=== PATIENT | male | born 1940 | race Two or more races ===

== ENCOUNTER 2019-03-18 09:17 | Inpatient (IN) | payer MEDICAID, OTHER, SELFPAY ==
[~2019-03-18] VITALS: Ht 165.1 cm; Wt 44.8 kg
[2019-03-18 10:32] LABS: BASOPHILS # (AUTO) 0.05 x10^3/uL (0-0.1); BASOPHILS % (AUTO) 0 % (0-1); EOSINOPHILS % (AUTO) 1 % (1-7); LYMPHOCYTES % (AUTO) 6 % (22-44); MD NO; MEAN CORPUSCULAR HEMOGLOBIN 28.1 pg (27.5-34.5); MEAN CORPUSCULAR HGB CONC 33.3 g/dL (33.2-36.2); MEAN CORPUSCULAR VOLUME 84.4 fL (81-97); MONOCYTES # (AUTO) 0.64 x10^3/uL (0.2-0.8); MONOCYTES % (AUTO) 5 % (2-9); NEUTROPHILS # (AUTO) 12.63 x10^3/uL (1.8-6.8); NEUTROPHILS % (AUTO) 88 % (42-75); PLATELET COUNT 338 x10^3/uL (130-400); RED BLOOD COUNT 5.74 x10^6/uL (4.38-5.82); RED CELL DISTRIBUTION WIDTH 16.7 % (9.4-14.8)
[2019-03-18 10:43] LABS: MICROSCOPIC NOT IND
[2019-03-18 10:45] LABS: ALBUMIN 3.1 g/dL (3.4-5.0); ANION GAP 5 mmol/L (5-15); CALCIUM 12.4 mg/dL (8.5-10.1); CHLORIDE 105 mmol/L (98-107)
[2019-03-18 10:52] LABS: ALANINE AMINOTRANSFERASE 33 U/L (12-78); ALKALINE PHOSPHATASE 100 U/L (45-117); BILIRUBIN,TOTAL 2.1 mg/dL (0.2-1.0); CREATININE 1.01 mg/dL (0.7-1.3); TOTAL PROTEIN 7.5 g/dL (6.4-8.2); TROPONIN I < 0.015 ng/mL (0.000-0.045)
[2019-03-18 10:54] LABS: CULTURE INDICATED? NO
[2019-03-18] MEDS ORDERED: POTASSIUM CHLORIDE 10% 40 MEQ/30 ML UDC PO ONE (11:00)
[2019-03-18] MEDS ORDERED: SODIUM CHLORIDE FLUSH 10ML SYR IVF ONE (11:00)
[2019-03-18] MEDS ORDERED: MAGNESIUM SULFATE 1 GM in SODIUM CHLORIDE 0.9% 50 ML IV ONE (11:00)
[2019-03-18] MEDS ORDERED: POTASSIUM CHLORIDE 10% 40 MEQ/30 ML UDC ONE (11:03)
--- NOTE | 2019-03-18 11:12 | NUR ---
Yellow lab slip sent to pharmacy to request medication per EMAR.
--- NOTE | 2019-03-18 11:42 | NUR ---
Provided pt medicaiton per EMAR. Pt had pulled off all of his monitors and PIV that was placed earlier. radiological technologist, NIBP, and cotninous pulse ox monitors reapplied. PIV being re-established. Provided pt with new elizabeth and linens as pt was incontinent of urine. Provided pt warm blankets and blanket warmer for comfort measures. Both bed rails up for safety measures, call light within reach. BRYON.
--- NOTE | 2019-03-18 11:59 | NUR ---
New PIV established by Staff ED RN. PIV medicaitons infusing per EMAR. NADN. No needs expressed. Call light within reach. Both bedrails up for safety measures.
--- NOTE | 2019-03-18 13:39 | NUR ---
REPORT FROM VASQUEZ RIGGS.
--- NOTE | 2019-03-18 14:04 | NUR ---
PT UP TO EDGE OF [place]. PT ASSISTED TO FEET. PT PLACED BACK INTO [facility] IMMEDIATELY DUE TO BE UNSTEADY. ERMD AWARE.
--- NOTE | 2019-03-18 15:11 | NUR ---
PT TO CT VIA [facility].
--- NOTE | 2019-03-18 15:50 | NUR ---
PT SLEEPING IN [facility]. NAD NOTED AT THIS TIME. BREATHING REGULAR AND UNLABORED.
[2019-03-18] MEDS ORDERED: POTASSIUM CHLORIDE 40 MEQ in SODIUM CHLORIDE 0.9% 1,000 ML IV ONE (16:18)
[2019-03-18] MEDS ORDERED: SODIUM CHLORIDE FLUSH 10ML SYR IVF PRN (16:30)
[2019-03-18] MEDS ORDERED: hydrALAzine 20 MG/ML, 1ML IVPush PRN (17:30)
[2019-03-18] MEDS ORDERED: ONDANSETRON ODT 4 MG PO PRN (17:30)
[2019-03-18] MEDS ORDERED: DOCUSATE 100 MG CAPSULE PO PRN (17:30)
[2019-03-18] MEDS ORDERED: LIDODERM 5% PATCH TD PRN (17:30)
--- NOTE | 2019-03-18 17:37 | NUR ---
REPORT TO VASQUEZ BLUM. AWAITING TRANSPORT.
--- NOTE | 2019-03-18 17:55 | NUR ---
IV INFUSION STARTED PER JAN. RIGHTS VERIFIED PRIOR. 3 P'S ADDRESSED. PT TO FLOOR.
[2019-03-18 18:10] VITALS: BP 111/74
[2019-03-18] MEDS ORDERED: CEFTRIAXONE PMX 1GM/50ML 50 ML IV SCH (18:30)
[2019-03-18 18:41] LABS: TROPONIN I 0.022 ng/mL (0.000-0.045)
[2019-03-18 18:52] LABS: FREE T4 (FREE THYROXINE) 1.31 ng/dL (0.76-1.46); THYROID STIMULATING HORMONE 1.02 mIU/L (0.358-3.740)
[2019-03-18] MEDS: HEPARIN 5,000 UNITS/ML, 1ML SQ SCH (21:18)
[2019-03-18] MEDS ORDERED: FUROSEMIDE 20 MG/2 ML IV STA (21:24)
[2019-03-18] MEDS ORDERED: OMNIPAQUE 350 MG/ML, 100ML BOTTLE ONE (21:46)
[2019-03-18 21:54] LABS: AMPHETAMINE SCREEN, URINE Negative (Negative); BARBITURATE SCREEN, URINE Negative (Negative); BENZODIAZEPINE SCREEN, URINE Negative (Negative); CANNABINOID SCREEN, URINE Negative (Negative); COCAINE SCREEN, URINE Negative (Negative); METHADONE SCREEN, URINE Negative (Negative); OPIATE SCREEN, URINE Negative (Negative)
[2019-03-18 23:17] LABS: CALCIUM 12.3 mg/dL (8.5-10.1)
[2019-03-18] MEDS: DOXYCYCLINE 100 MG in DEXTROSE 5% 250 ML IV SCH (23:27)
[2019-03-18] MEDS: SODIUM CHLORIDE 0.9% 1,000 ML IV SCH (23:30)
[2019-03-19] MEDS ORDERED: ALBUTEROL/IPRATROPIUM 2.5MG/0.5MG, 3 ML NPPB PRN
[2019-03-19 00:53] LABS: TROPONIN I < 0.015 ng/mL (0.000-0.045)
[2019-03-19 02:07] VITALS: BP 109/71
[2019-03-19 04:50] VITALS: BP 112/68
[2019-03-19] MEDS: HEPARIN 5,000 UNITS/ML, 1ML SQ SCH ×2 (05:34→17:00)
[2019-03-19 05:49] LABS: BASOPHILS # (AUTO) 0.04 x10^3/uL (0-0.1); BASOPHILS % (AUTO) 0 % (0-1); EOSINOPHILS # (AUTO) 0.08 x10^3/uL (0-0.4); EOSINOPHILS % (AUTO) 1 % (1-7); LYMPHOCYTES % (AUTO) 10 % (22-44); MD NO; MEAN CORPUSCULAR HEMOGLOBIN 27.9 pg (27.5-34.5); MEAN CORPUSCULAR HGB CONC 32.9 g/dL (33.2-36.2); MEAN CORPUSCULAR VOLUME 84.7 fL (81-97); MEAN PLATELET VOLUME 7.4 fL (7.4-10.4); MONOCYTES # (AUTO) 0.69 x10^3/uL (0.2-0.8); MONOCYTES % (AUTO) 5 % (2-9); NEUTROPHILS # (AUTO) 12.05 x10^3/uL (1.8-6.8); NEUTROPHILS % (AUTO) 84 % (42-75); PLATELET COUNT 310 x10^3/uL (130-400); RED CELL DISTRIBUTION WIDTH 16.9 % (9.4-14.8)
[2019-03-19 05:52] LABS: CALCIUM 12.3 mg/dL (8.5-10.1); CHLORIDE 110 mmol/L (98-107)
[2019-03-19 05:58] LABS: ALANINE AMINOTRANSFERASE 29 U/L (12-78); ALBUMIN 2.8 g/dL (3.4-5.0); ALKALINE PHOSPHATASE 95 U/L (45-117); ANION GAP 7 mmol/L (5-15); BILIRUBIN,TOTAL 1.6 mg/dL (0.2-1.0); CREATININE 1.06 mg/dL (0.7-1.3)
[2019-03-19 08:18] VITALS: BP 97/67
[2019-03-19] MEDS: SODIUM CHLORIDE 0.9% 1,000 ML IV SCH (09:18)
[2019-03-19] MEDS: DOXYCYCLINE 100 MG in DEXTROSE 5% 250 ML IV SCH (09:18)
[2019-03-19] MEDS ORDERED: POTASSIUM CHLORIDE 20 MEQ TAB.ER.PRT PO ONE (10:00)
[2019-03-19 12:45] VITALS: BP 110/75
--- NOTE | 2019-03-19 13:27 | NUR ---
MANNEQUIN MOLD MAKER RECOMMEND: CHAN/ STEFANIE -otto at 90 -straws ok -assist as needed Addendum: 03/19/19 at [address] Amended: Links added.
[2019-03-19] MEDS ORDERED: VANCOMYCIN PER PHARMACY MC PRN (15:00)
[2019-03-19] MEDS ORDERED: PHARMACOKINETIC MONITORING MC PRN (15:30)
[2019-03-19] MEDS ORDERED: VANCOMYCIN PMX 1GM/200ML 200 ML IV SCH (16:00)
[2019-03-19] MEDS: PIPERACILLIN/TAZO/PMX 3.375GM 50 ML IV SCH (17:00)
[2019-03-19 19:54] VITALS: BP 108/72
[2019-03-20] MEDS ORDERED: FUROSEMIDE 20 MG/2 ML IV SCH (00:30)
[2019-03-20] MEDS: HEPARIN 5,000 UNITS/ML, 1ML SQ SCH ×3 (00:35→17:00)
[2019-03-20] MEDS: SODIUM CHLORIDE 0.9% 1,000 ML IV SCH ×3 (00:35→08:30)
[2019-03-20] MEDS: PIPERACILLIN/TAZO/PMX 3.375GM 50 ML IV SCH ×3 (00:35→17:26)
[2019-03-20 00:44] VITALS: BP 105/59
[2019-03-20 06:59] VITALS: BP 115/60
[2019-03-20 07:49] LABS: BASOPHILS # (AUTO) 0.02 x10^3/uL (0-0.1); BASOPHILS % (AUTO) 0 % (0-1); EOSINOPHILS # (AUTO) 0.12 x10^3/uL (0-0.4); EOSINOPHILS % (AUTO) 1 % (1-7); LYMPHOCYTES # (AUTO) 1.17 x10^3/uL (1-3.4); LYMPHOCYTES % (AUTO) 9 % (22-44); MD NO; MEAN CORPUSCULAR HEMOGLOBIN 27.2 pg (27.5-34.5); MEAN CORPUSCULAR HGB CONC 31.2 g/dL (33.2-36.2); MEAN CORPUSCULAR VOLUME 87.3 fL (81-97); MEAN PLATELET VOLUME 7.4 fL (7.4-10.4); MONOCYTES # (AUTO) 0.55 x10^3/uL (0.2-0.8); MONOCYTES % (AUTO) 4 % (2-9); NEUTROPHILS # (AUTO) 11.51 x10^3/uL (1.8-6.8); NEUTROPHILS % (AUTO) 86 % (42-75); PLATELET COUNT 320 x10^3/uL (130-400); RED CELL DISTRIBUTION WIDTH 16.5 % (9.4-14.8)
[2019-03-20 07:55] LABS: ALANINE AMINOTRANSFERASE 22 U/L (12-78); ALBUMIN 2.5 g/dL (3.4-5.0); ANION GAP 3 mmol/L (5-15); CALCIUM 10.9 mg/dL (8.5-10.1); CHLORIDE 110 mmol/L (98-107); CREATININE 0.98 mg/dL (0.7-1.3)
[2019-03-20] MEDS ORDERED: POTASSIUM CHLORIDE 20 MEQ TAB.ER.PRT PO SCH (08:00)
[2019-03-20 08:01] LABS: ALKALINE PHOSPHATASE 80 U/L (45-117); BILIRUBIN,TOTAL 1.1 mg/dL (0.2-1.0); TOTAL PROTEIN 6.3 g/dL (6.4-8.2)
[2019-03-20] MEDS ORDERED: POTASSIUM CHLORIDE 20 MEQ TAB.ER.PRT PO ONE (08:30)
[2019-03-20] MEDS ORDERED: FUROSEMIDE 20 MG TABLET PO SCH (09:00)
[2019-03-20 12:33] VITALS: BP 105/68
[2019-03-20 20:08] VITALS: BP 116/73
[2019-03-21] MEDS: PIPERACILLIN/TAZO/PMX 3.375GM 50 ML IV SCH ×3 (01:47→17:29)
[2019-03-21] MEDS: HEPARIN 5,000 UNITS/ML, 1ML SQ SCH ×2 (01:48→17:29)
[2019-03-21] MEDS: SODIUM CHLORIDE 0.9% 1,000 ML IV SCH (01:49)
[2019-03-21 02:03] VITALS: BP 97/61
[2019-03-21 07:20] LABS: ANION GAP 4 mmol/L (5-15); CALCIUM 9.6 mg/dL (8.5-10.1); CHLORIDE 110 mmol/L (98-107)
[2019-03-21 07:25] LABS: BASOPHILS # (AUTO) 0.03 x10^3/uL (0-0.1); BASOPHILS % (AUTO) 0 % (0-1); EOSINOPHILS # (AUTO) 0.13 x10^3/uL (0-0.4); EOSINOPHILS % (AUTO) 1 % (1-7); LYMPHOCYTES # (AUTO) 1.01 x10^3/uL (1-3.4); LYMPHOCYTES % (AUTO) 8 % (22-44); MD NO; MEAN CORPUSCULAR HGB CONC 33.1 g/dL (33.2-36.2); MEAN CORPUSCULAR VOLUME 84.5 fL (81-97); MEAN PLATELET VOLUME 7.4 fL (7.4-10.4); MONOCYTES % (AUTO) 5 % (2-9); NEUTROPHILS # (AUTO) 10.61 x10^3/uL (1.8-6.8); NEUTROPHILS % (AUTO) 86 % (42-75); PLATELET COUNT 274 x10^3/uL (130-400); RED CELL DISTRIBUTION WIDTH 17.1 % (9.4-14.8)
[2019-03-21 08:25] VITALS: BP 94/56
[2019-03-21 11:06] LABS: QUANTIFERON TB Ag1-NIL 2.37 (0.000-0.000)
[2019-03-21] MEDS: POTASSIUM CHLORIDE 20 MEQ TAB.ER.PRT PO SCH ×2 (11:45→22:40)
[2019-03-21] MEDS: FUROSEMIDE 20 MG TABLET PO SCH (11:45)
[2019-03-21 15:51] VITALS: BP 111/62
[2019-03-21 19:44] VITALS: BP 101/62
[2019-03-22] MEDS: SODIUM CHLORIDE 0.9% 1,000 ML IV SCH ×2 (01:11→05:24)
[2019-03-22] MEDS: PIPERACILLIN/TAZO/PMX 3.375GM 50 ML IV SCH ×3 (01:11→16:46)
[2019-03-22 02:17] VITALS: BP 98/56
[2019-03-22] MEDS: HEPARIN 5,000 UNITS/ML, 1ML SQ SCH ×2 (05:31→16:45)
[2019-03-22 05:51] LABS: ANION GAP 6 mmol/L (5-15); CALCIUM 10.2 mg/dL (8.5-10.1); CHLORIDE 107 mmol/L (98-107)
[2019-03-22 07:19] VITALS: BP 110/69
[2019-03-22] MEDS: FUROSEMIDE 20 MG TABLET PO SCH (09:10)
[2019-03-22 14:12] VITALS: BP 113/69
[2019-03-22 20:00] VITALS: BP 109/76
[2019-03-23] MEDS: PIPERACILLIN/TAZO/PMX 3.375GM 50 ML IV SCH ×3 (00:39→20:12)
[2019-03-23 03:38] VITALS: BP 97/55
[2019-03-23] MEDS: HEPARIN 5,000 UNITS/ML, 1ML SQ SCH ×2 (04:54→16:19)
[2019-03-23 06:44] LABS: % IRON SATURATION 19 % (20-55); ANION GAP 5 mmol/L (5-15); CHLORIDE 106 mmol/L (98-107); CREATININE 0.91 mg/dL (0.7-1.3); IRON LEVEL 35 mcg/dL (65-175); TOTAL IRON BINDING CAPACITY 180 mcg/dL (250-450)
[2019-03-23 08:02] VITALS: BP 111/69
[2019-03-23] MEDS: FUROSEMIDE 20 MG TABLET PO SCH (11:19)
[2019-03-23] MEDS: POTASSIUM CHLORIDE 20 MEQ TAB.ER.PRT PO SCH (11:20)
[2019-03-23] MEDS: SODIUM CHLORIDE 0.9% 1,000 ML IV SCH (11:22)
[2019-03-23 13:24] VITALS: BP 107/68
[2019-03-23 20:14] VITALS: BP 111/72
[2019-03-24] VITALS (12 sets, daily range): BP systolic 100–127; BP diastolic 53–80
--- NOTE | 2019-03-24 00:46 | NUR ---
LIZANDRO STOLL - Fall Risk Medication(s) present and receiving anticoagulants.
[2019-03-24] MEDS: PIPERACILLIN/TAZO/PMX 3.375GM 50 ML IV SCH ×3 (04:15→20:36)
[2019-03-24] MEDS: HEPARIN 5,000 UNITS/ML, 1ML SQ SCH ×2 (04:16→18:29)
[2019-03-24 09:20] LABS: CHLORIDE 109 mmol/L (98-107)
[2019-03-24 10:29] LABS: BASOPHILS # (AUTO) 0.02 x10^3/uL (0-0.1); BASOPHILS % (AUTO) 0 % (0-1); EOSINOPHILS # (AUTO) 0.17 x10^3/uL (0-0.4); EOSINOPHILS % (AUTO) 1 % (1-7); LYMPHOCYTES % (AUTO) 8 % (22-44); MD SCAN; MEAN CORPUSCULAR HEMOGLOBIN 26.9 pg (27.5-34.5); MEAN CORPUSCULAR HGB CONC 31.6 g/dL (33.2-36.2); MEAN CORPUSCULAR VOLUME 85.1 fL (81-97); MEAN PLATELET VOLUME 7.6 fL (7.4-10.4); MONOCYTES # (AUTO) 0.63 x10^3/uL (0.2-0.8); MONOCYTES % (AUTO) 4 % (2-9); NEUTROPHILS # (AUTO) 13.16 x10^3/uL (1.8-6.8); NEUTROPHILS % (AUTO) 87 % (42-75); PLATELET COUNT 305 x10^3/uL (130-400); RED BLOOD COUNT 5.09 x10^6/uL (4.38-5.82); RED CELL DISTRIBUTION WIDTH 16.9 % (9.4-14.8)
[2019-03-24 10:30] LABS: HCT (SEDRATE) 43.4 % (39.2-51.8)
[2019-03-24 10:41] LABS: ANION GAP 11 mmol/L (5-15)
[2019-03-24] MEDS: POTASSIUM CHLORIDE 20 MEQ TAB.ER.PRT PO SCH ×2 (10:47→20:36)
[2019-03-24] MEDS: FUROSEMIDE 20 MG TABLET PO SCH (10:47)
[2019-03-24 10:50] LABS: ALBUMIN 2.4 g/dL (3.4-5.0); ALKALINE PHOSPHATASE 73 U/L (45-117); CALCIUM 11.5 mg/dL (8.5-10.1); CREATININE 0.82 mg/dL (0.7-1.3); TOTAL PROTEIN 6.8 g/dL (6.4-8.2)
[2019-03-24 10:51] LABS: ALANINE AMINOTRANSFERASE 42 U/L (12-78)
[2019-03-24] MEDS: SODIUM CHLORIDE 0.9% 1,000 ML IV SCH (10:52)
[2019-03-25 00:45] VITALS: BP 103/61
[2019-03-25] MEDS: PIPERACILLIN/TAZO/PMX 3.375GM 50 ML IV SCH ×3 (04:14→20:29)
[2019-03-25] MEDS ORDERED: SODIUM CHLORIDE INHALATION 7%, 4 ML NPPB SCH (05:00)
[2019-03-25] MEDS: HEPARIN 5,000 UNITS/ML, 1ML SQ SCH ×2 (05:32→17:00)
[2019-03-25 06:24] LABS: ANION GAP 7 mmol/L (5-15); CALCIUM 11.3 mg/dL (8.5-10.1); CHLORIDE 107 mmol/L (98-107)
[2019-03-25] MEDS ORDERED: SODIUM CHLORIDE INHALATION 7%, 4 ML ONE (06:30)
[2019-03-25 08:00] VITALS: BP 127/74
[2019-03-25] MEDS ORDERED: FENTANYL PF 100 MCG/2ML ONE (11:27)
[2019-03-25] MEDS ORDERED: FLUMAZENIL 0.1 MG/1 ML, 5ML ONE (11:27)
[2019-03-25] MEDS ORDERED: MIDAZOLAM 1 MG/ML, 5ML ONE (11:27)
[2019-03-25] MEDS ORDERED: NALOXONE 1 MG/ML, 2ML ONE (11:27)
[2019-03-25 15:00] VITALS: BP 85/52
[2019-03-25] MEDS: SODIUM CHLORIDE 0.9% 1,000 ML IV SCH (15:24)
[2019-03-25] MEDS: POTASSIUM CHLORIDE 20 MEQ TAB.ER.PRT PO SCH ×2 (15:25→20:29)
[2019-03-25] MEDS: FUROSEMIDE 20 MG TABLET PO SCH (15:25)
[2019-03-25 20:09] VITALS: BP 129/76
[2019-03-26 02:16] VITALS: BP 109/64
[2019-03-26] MEDS: PIPERACILLIN/TAZO/PMX 3.375GM 50 ML IV SCH ×3 (04:08→20:21)
[2019-03-26] MEDS: HEPARIN 5,000 UNITS/ML, 1ML SQ SCH ×2 (04:27→17:22)
[2019-03-26 05:41] LABS: ANION GAP 3 mmol/L (5-15); CALCIUM 11.6 mg/dL (8.5-10.1); CHLORIDE 111 mmol/L (98-107)
[2019-03-26 08:47] VITALS: BP 104/63
[2019-03-26] MEDS: CALCITONIN SALMON 200 UNITS/ML, 2ML SQ SCH (09:00)
[2019-03-26] MEDS: FUROSEMIDE 20 MG TABLET PO SCH (10:37)
[2019-03-26] MEDS: POTASSIUM CHLORIDE 20 MEQ TAB.ER.PRT PO SCH ×2 (10:37→20:21)
[2019-03-26 12:35] VITALS: BP 119/73
[2019-03-26 14:19] VITALS: BP 113/78
[2019-03-26 20:14] VITALS: BP 107/67
[2019-03-27 02:36] VITALS: BP 97/63
[2019-03-27] MEDS: HEPARIN 5,000 UNITS/ML, 1ML SQ SCH ×2 (05:04→17:00)
[2019-03-27] MEDS: PIPERACILLIN/TAZO/PMX 3.375GM 50 ML IV SCH ×3 (05:04→21:27)
[2019-03-27 07:14] LABS: MEAN CORPUSCULAR HEMOGLOBIN 27.2 pg (27.5-34.5); MEAN CORPUSCULAR HGB CONC 31.4 g/dL (33.2-36.2); MEAN CORPUSCULAR VOLUME 86.7 fL (81-97); MEAN PLATELET VOLUME 7.7 fL (7.4-10.4); PLATELET COUNT 316 x10^3/uL (130-400); RED CELL DISTRIBUTION WIDTH 17.2 % (9.4-14.8)
[2019-03-27 07:21] LABS: ANION GAP 5 mmol/L (5-15); CALCIUM 11.4 mg/dL (8.5-10.1); CHLORIDE 109 mmol/L (98-107); CREATININE 0.85 mg/dL (0.7-1.3)
[2019-03-27 08:47] VITALS: BP 119/66
[2019-03-27 09:31] LABS: BASOPHILS # (AUTO) 0.03 x10^3/uL (0-0.1); BASOPHILS % (AUTO) 0 % (0-1); EOSINOPHILS # (AUTO) 0.17 x10^3/uL (0-0.4); EOSINOPHILS % (AUTO) 1 % (1-7); LYMPHOCYTES # (AUTO) 1.17 x10^3/uL (1-3.4); LYMPHOCYTES % (AUTO) 7 % (22-44); MD SCAN; MONOCYTES # (AUTO) 0.63 x10^3/uL (0.2-0.8); MONOCYTES % (AUTO) 4 % (2-9); NEUTROPHILS # (AUTO) 15.22 x10^3/uL (1.8-6.8); NEUTROPHILS % (AUTO) 88 % (42-75)
[2019-03-27] MEDS: FUROSEMIDE 20 MG TABLET PO SCH (09:33)
[2019-03-27] MEDS: POTASSIUM CHLORIDE 20 MEQ TAB.ER.PRT PO SCH ×2 (09:33→21:28)
[2019-03-27 11:15] LABS: CLOSTRIDIUM DIFFICILE ANTIGEN NEGATIVE; CLOSTRIDIUM DIFFICILE TOXIN NEGATIVE (Negative)
[2019-03-27 12:22] LABS: TROPONIN I < 0.015 ng/mL (0.000-0.045)
[2019-03-27 13:18] VITALS: BP 116/70
[2019-03-27 19:59] VITALS: BP 108/65
[2019-03-27 23:36] VITALS: BP 131/84
[2019-03-28 01:29] VITALS: BP 117/72
[2019-03-28] MEDS: PIPERACILLIN/TAZO/PMX 3.375GM 50 ML IV SCH ×3 (04:29→23:15)
[2019-03-28] MEDS: HEPARIN 5,000 UNITS/ML, 1ML SQ SCH ×2 (04:29→17:14)
[2019-03-28 06:52] LABS: BASOPHILS # (AUTO) 0.06 x10^3/uL (0-0.1); BASOPHILS % (AUTO) 0 % (0-1); EOSINOPHILS # (AUTO) 0.11 x10^3/uL (0-0.4); EOSINOPHILS % (AUTO) 1 % (1-7); LYMPHOCYTES # (AUTO) 1.14 x10^3/uL (1-3.4); LYMPHOCYTES % (AUTO) 7 % (22-44); MD NO; MEAN CORPUSCULAR HEMOGLOBIN 27.9 pg (27.5-34.5); MEAN CORPUSCULAR HGB CONC 32.2 g/dL (33.2-36.2); MEAN CORPUSCULAR VOLUME 86.4 fL (81-97); MEAN PLATELET VOLUME 7.9 fL (7.4-10.4); MONOCYTES # (AUTO) 0.68 x10^3/uL (0.2-0.8); MONOCYTES % (AUTO) 4 % (2-9); NEUTROPHILS # (AUTO) 14.54 x10^3/uL (1.8-6.8); NEUTROPHILS % (AUTO) 88 % (42-75); PLATELET COUNT 334 x10^3/uL (130-400); RED BLOOD COUNT 5.04 x10^6/uL (4.38-5.82); RED CELL DISTRIBUTION WIDTH 17.2 % (9.4-14.8)
[2019-03-28 08:40] VITALS: BP 101/61
[2019-03-28] MEDS: POTASSIUM CHLORIDE 20 MEQ TAB.ER.PRT PO SCH ×2 (09:18→21:46)
[2019-03-28] MEDS: FUROSEMIDE 20 MG TABLET PO SCH (09:19)
[2019-03-28] MEDS: LACTOBACILLUS CHEW TABLET PO SCH ×3 (09:23→21:46)
[2019-03-28] MEDS: CALCITONIN SALMON 200 UNITS/ML, 2ML SQ SCH (09:23)
[2019-03-28] MEDS: SODIUM CHLORIDE 0.9% 1,000 ML IV SCH (11:48)
[2019-03-28 16:00] VITALS: BP 100/69
[2019-03-28 19:16] VITALS: BP 117/71
[2019-03-29 00:09] VITALS: BP 107/62
[2019-03-29] MEDS: HEPARIN 5,000 UNITS/ML, 1ML SQ SCH ×2 (05:03→16:38)
[2019-03-29 07:15] VITALS: BP 105/72
[2019-03-29] MEDS: PIPERACILLIN/TAZO/PMX 3.375GM 50 ML IV SCH (07:47)
[2019-03-29] MEDS: SODIUM CHLORIDE 0.9% 1,000 ML IV SCH ×2 (07:48→21:01)
[2019-03-29] MEDS ORDERED: DIPHENOXYLATE/ATROPINE TABLET PO PRN (08:30)
[2019-03-29] MEDS: LACTOBACILLUS CHEW TABLET PO SCH ×3 (10:29→20:23)
[2019-03-29] MEDS: FUROSEMIDE 20 MG TABLET PO SCH (10:29)
[2019-03-29] MEDS: POTASSIUM CHLORIDE 20 MEQ TAB.ER.PRT PO SCH ×2 (10:29→20:24)
[2019-03-29] MEDS: FERROUS SULFATE 325 MG TABLET PO SCH (10:34)
[2019-03-29] MEDS: AMOXICILLIN/CLAV 875-125MG TABLET PO SCH ×2 (12:00→20:24)
[2019-03-29 13:28] VITALS: BP 111/66
[2019-03-29 18:55] VITALS: BP 117/76
[2019-03-29] MEDS: GUAIFENESIN/DM 200-20MG, 10ML UDC PO PRN (20:23)
[2019-03-30 01:40] VITALS: BP 127/72
[2019-03-30] MEDS: ASPIRIN 81 MG TABLET EC PO SCH (04:56)
[2019-03-30] MEDS: AMOXICILLIN/CLAV 875-125MG TABLET PO SCH ×3 (04:56→20:37)
[2019-03-30] MEDS: HEPARIN 5,000 UNITS/ML, 1ML SQ SCH ×2 (04:57→17:30)
[2019-03-30 07:10] VITALS: BP 118/68
[2019-03-30] MEDS: POTASSIUM CHLORIDE 20 MEQ TAB.ER.PRT PO SCH ×2 (09:31→20:36)
[2019-03-30] MEDS: LACTOBACILLUS CHEW TABLET PO SCH ×3 (09:31→20:36)
[2019-03-30] MEDS: FUROSEMIDE 20 MG TABLET PO SCH (09:36)
[2019-03-30] MEDS: SODIUM CHLORIDE 0.9% 1,000 ML IV SCH (12:15)
[2019-03-30] MEDS: CALCITONIN SALMON 200 UNITS/ML, 2ML SQ SCH (12:15)
[2019-03-30 14:01] VITALS: BP 125/88
[2019-03-30 20:46] VITALS: BP 106/66
[2019-03-31 02:10] VITALS: BP 101/64
[2019-03-31] MEDS: SODIUM CHLORIDE 0.9% 1,000 ML IV SCH ×2 (02:33→17:19)
[2019-03-31] MEDS: AMOXICILLIN/CLAV 875-125MG TABLET PO SCH ×3 (03:31→20:00)
[2019-03-31] MEDS: ASPIRIN 81 MG TABLET EC PO SCH (05:15)
[2019-03-31] MEDS: HEPARIN 5,000 UNITS/ML, 1ML SQ SCH ×2 (05:15→17:19)
[2019-03-31 05:16] LABS: BASOPHILS # (AUTO) 0.03 x10^3/uL (0-0.1); BASOPHILS % (AUTO) 0 % (0-1); EOSINOPHILS # (AUTO) 0.06 x10^3/uL (0-0.4); EOSINOPHILS % (AUTO) 1 % (1-7); LYMPHOCYTES # (AUTO) 1.07 x10^3/uL (1-3.4); LYMPHOCYTES % (AUTO) 8 % (22-44); MD NO; MEAN CORPUSCULAR HEMOGLOBIN 27.6 pg (27.5-34.5); MEAN CORPUSCULAR HGB CONC 31.8 g/dL (33.2-36.2); MEAN CORPUSCULAR VOLUME 86.7 fL (81-97); MEAN PLATELET VOLUME 7.7 fL (7.4-10.4); MONOCYTES # (AUTO) 0.52 x10^3/uL (0.2-0.8); MONOCYTES % (AUTO) 4 % (2-9); NEUTROPHILS # (AUTO) 12.16 x10^3/uL (1.8-6.8); NEUTROPHILS % (AUTO) 88 % (42-75); PLATELET COUNT 333 x10^3/uL (130-400); RED BLOOD COUNT 4.63 x10^6/uL (4.38-5.82); RED CELL DISTRIBUTION WIDTH 17.5 % (9.4-14.8)
[2019-03-31 05:35] LABS: CALCIUM 10.8 mg/dL (8.5-10.1); CHLORIDE 112 mmol/L (98-107)
[2019-03-31 05:36] LABS: ANION GAP 5 mmol/L (5-15); CREATININE 0.67 mg/dL (0.7-1.3)
[2019-03-31 08:00] VITALS: BP 118/64
[2019-03-31] MEDS: LACTOBACILLUS CHEW TABLET PO SCH ×3 (08:57→20:06)
[2019-03-31] MEDS: FERROUS SULFATE 325 MG TABLET PO SCH (08:57)
[2019-03-31] MEDS: FUROSEMIDE 20 MG TABLET PO SCH (08:57)
[2019-03-31] MEDS: POTASSIUM CHLORIDE 20 MEQ TAB.ER.PRT PO SCH ×2 (08:57→20:06)
[2019-03-31 14:21] VITALS: BP 147/74
[2019-03-31 20:04] VITALS: BP 121/77
[2019-04-01 00:45] VITALS: BP 114/75
[2019-04-01] MEDS: AMOXICILLIN/CLAV 875-125MG TABLET PO SCH ×3 (04:00→20:00)
[2019-04-01] MEDS: HEPARIN 5,000 UNITS/ML, 1ML SQ SCH ×2 (04:24→16:11)
[2019-04-01] MEDS: ASPIRIN 81 MG TABLET EC PO SCH (04:24)
[2019-04-01 06:57] VITALS: BP 107/71
[2019-04-01] MEDS: LACTOBACILLUS CHEW TABLET PO SCH ×3 (09:15→20:40)
[2019-04-01] MEDS: POTASSIUM CHLORIDE 20 MEQ TAB.ER.PRT PO SCH ×2 (09:15→20:40)
[2019-04-01] MEDS: SODIUM CHLORIDE 0.9% 1,000 ML IV SCH (09:15)
[2019-04-01] MEDS: CALCITONIN SALMON 200 UNITS/ML, 2ML SQ SCH (10:48)
[2019-04-01 13:26] VITALS: BP 122/81
[2019-04-01 19:48] VITALS: BP 116/68
[2019-04-01] MEDS: GUAIFENESIN/DM 200-20MG, 10ML UDC PO PRN (20:41)
[2019-04-01] MEDS: KETOROLAC 30 MG/1 ML IVPush PRN (22:12)
[2019-04-02 02:42] VITALS: BP 120/73
[2019-04-02] MEDS: AMOXICILLIN/CLAV 875-125MG TABLET PO SCH ×3 (04:00→20:00)
[2019-04-02] MEDS: HEPARIN 5,000 UNITS/ML, 1ML SQ SCH ×2 (04:54→16:44)
[2019-04-02] MEDS: ASPIRIN 81 MG TABLET EC PO SCH (04:54)
[2019-04-02] MEDS: KETOROLAC 30 MG/1 ML IVPush PRN ×2 (05:06→19:21)
[2019-04-02 05:36] LABS: ALANINE AMINOTRANSFERASE 33 U/L (12-78); ALBUMIN 2.2 g/dL (3.4-5.0); ANION GAP 4 mmol/L (5-15); CALCIUM 11.7 mg/dL (8.5-10.1); CHLORIDE 114 mmol/L (98-107); CREATININE 0.69 mg/dL (0.7-1.3)
[2019-04-02 05:39] LABS: ALKALINE PHOSPHATASE 83 U/L (45-117); BILIRUBIN,TOTAL 0.5 mg/dL (0.2-1.0)
[2019-04-02 07:35] VITALS: BP 94/58
[2019-04-02] MEDS: LACTOBACILLUS CHEW TABLET PO SCH ×3 (10:40→20:00)
[2019-04-02] MEDS: FERROUS SULFATE 220 MG/5 ML ORAL SOL PO SCH (10:40)
[2019-04-02] MEDS: POTASSIUM CHLORIDE 20 MEQ TAB.ER.PRT PO SCH ×2 (10:40→20:00)
[2019-04-02 13:14] VITALS: BP 115/68
[2019-04-02] MEDS: GUAIFENESIN/DM 200-20MG, 10ML UDC PO PRN (19:22)
[2019-04-02 19:26] VITALS: BP 117/74
[2019-04-03 01:17] VITALS: BP 114/68
[2019-04-03] MEDS: AMOXICILLIN/CLAV 875-125MG TABLET PO SCH ×3 (04:00→20:00)
[2019-04-03] MEDS: HEPARIN 5,000 UNITS/ML, 1ML SQ SCH ×2 (04:32→16:12)
[2019-04-03] MEDS: ASPIRIN 81 MG TABLET EC PO SCH (04:32)
[2019-04-03 08:00] VITALS: BP 111/67
[2019-04-03] MEDS: LACTOBACILLUS CHEW TABLET PO SCH ×3 (09:33→20:29)
[2019-04-03] MEDS: POTASSIUM CHLORIDE 20 MEQ TAB.ER.PRT PO SCH ×2 (09:33→20:29)
[2019-04-03] MEDS: CALCITONIN SALMON 200 UNITS/ML, 2ML SQ SCH (09:33)
[2019-04-03 12:37] VITALS: BP 110/81
[2019-04-03 18:40] VITALS: BP 116/70
[2019-04-04] VITALS (13 sets, daily range): BP systolic 100–137; BP diastolic 64–80
[2019-04-04] MEDS: HEPARIN 5,000 UNITS/ML, 1ML SQ SCH ×2 (04:15→15:49)
[2019-04-04] MEDS: AMOXICILLIN/CLAV 875-125MG TABLET PO SCH ×3 (04:15→20:29)
[2019-04-04] MEDS: ASPIRIN 81 MG TABLET EC PO SCH (04:16)
[2019-04-04] MEDS: LACTOBACILLUS CHEW TABLET PO SCH ×3 (08:03→20:29)
[2019-04-04] MEDS: POTASSIUM CHLORIDE 20 MEQ TAB.ER.PRT PO SCH ×2 (08:04→20:29)
[2019-04-04] MEDS: FERROUS SULFATE 220 MG/5 ML ORAL SOL PO SCH (11:13)
[2019-04-04] MEDS: KETOROLAC 30 MG/1 ML IVPush PRN ×2 (15:49→22:21)
[2019-04-05 00:32] VITALS: BP 130/88
[2019-04-05] MEDS: AMOXICILLIN/CLAV 875-125MG TABLET PO SCH ×3 (05:05→20:00)
[2019-04-05] MEDS: ASPIRIN 81 MG TABLET EC PO SCH (05:05)
[2019-04-05] MEDS: HEPARIN 5,000 UNITS/ML, 1ML SQ SCH ×2 (05:06→16:54)
[2019-04-05 05:39] LABS: ANION GAP 4 mmol/L (5-15); CHLORIDE 114 mmol/L (98-107)
[2019-04-05 05:40] LABS: CREATININE 1.22 mg/dL (0.7-1.3)
[2019-04-05 05:42] LABS: CALCIUM 15.1 mg/dL (8.5-10.1)
[2019-04-05 06:33] VITALS: BP 122/83
[2019-04-05] MEDS: LACTOBACILLUS CHEW TABLET PO SCH ×3 (08:59→21:00)
[2019-04-05] MEDS: POTASSIUM CHLORIDE 20 MEQ TAB.ER.PRT PO SCH ×2 (08:59→21:00)
[2019-04-05] MEDS: CALCITONIN SALMON 200 UNITS/ML, 2ML SQ SCH (10:26)
[2019-04-05 12:28] VITALS: BP 133/72
[2019-04-05 18:20] VITALS: BP 129/84
[2019-04-05] MEDS ORDERED: LORazepam INTENSOL 2 MG/ML BC PRN (20:30)
[2019-04-05] MEDS ORDERED: morphine SULFATE ORAL.CONC 20 MG/ML BC PRN (20:30)
[2019-04-06 03:10] VITALS: BP 132/86
[2019-04-06] MEDS: AMOXICILLIN/CLAV 875-125MG TABLET PO SCH (04:00)
[2019-04-06] MEDS: HEPARIN 5,000 UNITS/ML, 1ML SQ SCH (05:00)
[2019-04-06] MEDS: ASPIRIN 81 MG TABLET EC PO SCH (06:00)
[2019-04-06 06:40] VITALS: BP 122/86
[2019-04-06] MEDS: POTASSIUM CHLORIDE 20 MEQ TAB.ER.PRT PO SCH (08:04)
[2019-04-06] MEDS: LACTOBACILLUS CHEW TABLET PO SCH (08:04)
[2019-04-06] MEDS ORDERED: SCOPOLAMINE PATCH, 1.5MG PATCH.TD72 TD PRN ×2 (10:00→11:00)
[2019-04-06] MEDS ORDERED: ATROPINE OPHTH SOLN 1%, 5ML BC PRN (10:00)
[2019-04-06] MEDS ORDERED: HALOPERIDOL 0.5 MG TABLET PO PRN (10:00)
[2019-04-06] MEDS ORDERED: PROCHLORPERAZINE 5 MG/ML, 2ML IVPush PRN (10:00)
[2019-04-06] MEDS ORDERED: [UNRECOGNIZED DRUG - REMARK] XX PRN (10:30)
[2019-04-06] MEDS: FERROUS SULFATE 220 MG/5 ML ORAL SOL PO SCH (10:30)
[2019-04-06] MEDS: morphine SULFATE ORAL.CONC 20 MG/ML BC PRN ×2 (11:19→17:58)
[2019-04-06] MEDS ORDERED: LORazepam INTENSOL 2 MG/ML BC PRN (11:30)
[2019-04-06] MEDS ORDERED: LORazepam 2 MG/ML, 1ML IVPush PRN (11:30)
[2019-04-07] MEDS: morphine SULFATE ORAL.CONC 20 MG/ML BC PRN (05:24)
== END 2019-04-08 03:00 | disposition expired | DRG 853 ==
LOC: ED 13:47 → EDIP 16:18 → 4WST 17:56 → 4EST 03-28 12:20 → 3NW 04-07 19:45
PROVIDERS: ADMIT Internal Medicine; ATTEND Internal Medicine
PROC: 0W993ZZ Drainage of Right Pleural Cavity, Percutaneous Approach (ICD-10-PCS; 2019-03-20)
PROC: 07B73ZX Excision of Thorax Lymphatic, Percutaneous Approach, Diagnostic (ICD-10-PCS; principal; 2019-03-25)
PROC: 0BBF3ZX Excision of Right Lower Lung Lobe, Percutaneous Approach, Diagnostic (ICD-10-PCS; 2019-03-25)
DX: A41.9 Sepsis, unspecified organism (principal); J85.0 Gangrene and necrosis of lung; J96.01 Acute respiratory failure with hypoxia; G93.41 Metabolic encephalopathy; J90 Pleural effusion, not elsewhere classified; R17 Unspecified jaundice; Z68.1 Body mass index [BMI] 19.9 or less, adult; E46 Unspecified protein-calorie malnutrition; C34.31 Malignant neoplasm of lower lobe, right bronchus or lung; E87.6 Hypokalemia; E83.52 Hypercalcemia; R26.0 Ataxic gait; R26.81 Unsteadiness on feet; G31.9 Degenerative disease of nervous system, unspecified; S80.212A Abrasion, left knee, initial encounter; S80.211A Abrasion, right knee, initial encounter; S50.311A Abrasion of right elbow, initial encounter; W18.39XA Other fall on same level, initial encounter; S40.211A Abrasion of right shoulder, initial encounter; R59.0 Localized enlarged lymph nodes; R97.0 Elevated carcinoembryonic antigen [CEA]; J43.9 Emphysema, unspecified; D64.9 Anemia, unspecified; Z66 Do not resuscitate; Z51.5 Encounter for palliative care; Z99.81 Dependence on supplemental oxygen; Z63.8 Other specified problems related to primary support group; Z59.0 Homelessness; Y93.89 Activity, other specified; Y92.89 Other specified places as the place of occurrence of the external cause; Y99.8 Other external cause status; Z86.73 Personal history of transient ischemic attack (TIA), and cerebral infarction without residual deficits; Z87.891 Personal history of nicotine dependence; Z87.11 Personal history of peptic ulcer disease
CPT/HCPCS: 32405; 32555; 36415; 36600; 70450; 71045; 71275; 77012; 80048; 80053; 80307; 81003; 82306; 82310; 82330; 82378; 82784; 82787; 82803; 82945; 83540; 83550; 83605; 83615; 83735; 83880; 83970; 83986; 84100; 84145; 84155; 84156; 84157; 84165; 84439; 84443; 84484; 85025; 85651; 86140; 86334; 86480; 86631; 86632; 86635; 86738; 87015; 87040; 87070; 87075; 87081; 87102; 87116; 87205; 87206; 87324; 88305; 89051; 93005; 93306; 94640; 99285; G0378; J0696; J1644; J1885; J2250; J2543; J3010; J3370; J3475; J3480; J7060; Q0162; Q9967; J0630; J1940; J2310; J7030